=== PATIENT | female | born 1970 | race Caucasian/White ===

== ENCOUNTER 2025-10-17 16:08 | Emergency (ER) | payer OTHER, SELFPAY ==
[2025-10-17 16:14] VITALS: BP 94/63; PULSE 76; RESP 18; TEMP 36.8; O2SAT 95
--- NOTE | 2025-10-17 16:15 | RT.EKG_ITS ---
APPROVED REPORT Exam: Resting ECG Reason for Exam: SOB Patient Location: E HR:67 bpm ECG Measurements Heart Rate 67 AXIS MI 114 P 61 QRSd 101 QRS 78 QT 431 T 61 QTc 455 Conclusion Sinus rhythm, rate 67 No interval abnormalities No STEMI No priors available for comparison
--- NOTE | 2025-10-17 16:30 | DI.RAD_ITS ---
Exam(s) XR RIBS LT W PA LAT CHEST EXAM: XR RIBS LT W PA LAT CHEST CLINICAL HISTORY: fall onto stairs. TECHNIQUE: 2D digital imaging was performed. COMPARISON: No exams were available for comparison FINDINGS: Total 6 views: Left rib cage-four views: There is a subtle suggestion of a nondisplaced fracture of the left 10th rib. No rib lesions evident. Chest x-ray-two views: Heart size normal. The mediastinum is not widened. No lung contusion or infiltrates nor pleural effusions. No pneumothorax. IMPRESSION: Subtle nondisplaced fracture of the left 10th rib. No acute pulmonary findings. No evidence of pneumothorax. DATA REPOSITORY: RADIATION DOSE DELIVERED:
--- NOTE | 2025-10-17 16:54 | ED.GENADUL_ITS ---
Discharge Plan Disposition Patient Disposition: Home Condition: Stable Discharge Details Clinical Impression: Fracture of left tenth rib, Fall (on) (from) other stairs and steps, initial encounter Primary Care Provider: Unknown,Unknown ED Provider: Melanie Marshall Home Meds and New Rx's Prescriptions: No Action aspirin [Adult Low Dose Aspirin] 81 mg tablet,delayed release (DR/EC) 81 mg PO DAILY Patient Comments: has not taken for a few days Discharge Instructions Instructions: Rib Fracture or Bruised Rib ED Additional Instructions: You were seen in the emergency department today for evaluation after a fall and were found to have a nondisplaced fracture of the left 10th rib. There was no evidence of damage to your lungs underneath this, in our emergency department you also had a reassuring EKG and negative cardiac enzymes on your labs. You received medications to manage pain, and should purchase Lidoderm patches [id number] for continued management of pain from your rib fracture. Please use therapeutic dosing of Tylenol (acetaminophen) & Advil (ibuprofen) in an alternating fashion as follows: Take 1000mg of Tylenol every 6 hours without missing doses- that is 4 times per day. [place] in between the Tylenol doses, take 600mg of Advil also on a 6 hour schedule, that is also 4 times per day. With this strategy, you will be taking something for fever/pain as often as every 3 hours. The daily maximum dosing of Tylenol is 4000mg, and the daily maximum dosing of Advil is 2400mg. Please note that some common cold medications & prescription pain medications may contain acetaminophen and you need to read OTC drug labels and factor that in to maximum daily doses. I have provided you with a short course of Flexeril, you can take 1/2 to 1 tablet as needed for severe pain or muscle spasms. This medication can cause sedation, please do not take it if you are going to be driving or operating machinery. Most patients find that they use this medication at nighttime when their pain is worse to help him sleep. Please continue to use your incentive spirometer several times per day to keep your lungs open and healthy. Splint with a pillow or fluffy blanket when you need to cough or move, and return to the emergency department for reevaluation if you develop a cough productive of blood or sputum, fever or chills, shortness of breath, or any other symptoms that cause you concern. Please follow-up with your primary care provider in the next few days to discuss this visit and any symptoms that change, worsen, or persist. Thank you for allowing us to be part of your care. Stand Alone Forms: Portal Information HPI General Mode of arrival: ambulatory . Date/Time Provider Initiated Documentation: 10/17/25 16:10 . Limitations to Documentation: no limitations . Information obtained by: patient, family and old records reviewed . HPI Narrative: This is a 55-year-old female patient presenting for evaluation after a fall. The patient was on the stairs, which are wooden and she was wearing leather slippers and slipped, and fell landing on her left sided rib/back. She did not strike her head or lose consciousness, does not take any anticoagulant medications, and was in her normal state of health prior to this event without dizziness, syncope, or chest pain. She reports that she was able to get up and walk after this incident but was having significant pain in her sternum and left sided rib/back. She had an episode of vomiting immediately after this event, and presented to care most concerned that she could have had a cardiac injury. The patient has recently relocated from [place], continues to follow with primary care providers back in [place], takes a daily baby aspirin. Related Data Home Medications ?Medication ?Instructions ?Recorded ?Confirmed aspirin 81 mg tablet,delayed 81 mg PO DAILY 10/17/25 1 12/18/24 release (Adult Low Dose Aspirin) General Stated Complaint: Orthopedic SVETA: 3 Exam Narrative Exam Narrative: Gen: Awake and alert, in no apparent distress HEENT: Non-icteric sclera, scalp atraumatic Neck: Supple, no C-spine tenderness or limitation in range of motion Lungs: No apparent respiratory distress, normal respiratory effort. Lung sounds clear and equal bilaterally without wheezes, rhonchi, rales CV: Appears well perfused, heart with regular rate and rhythm, strong distal pulses Abdomen: Non-distended, soft, nontender to palpation without rigidity, rebound, or guarding. MSK: Moves 4 extremities without apparent limitation in ROM. No peripheral edema. The patient does have tenderness to palpation without overlying skin changes, crepitus, or deformity of the posterolateral left sided lower ribs. She has some tenderness over the anterior chest wall with movement and palpation, with no overlying skin changes or crepitus. Abdomen is soft and nontender, no tenderness to palpation of the T or L-spine. Skin: Visualized skin without rashes, cyanosis. Neuro: Normal Gait, no obvious focal deficits or facial asymmetry. Speaks in full, clear sentences. Psych: Appropriate for situation. Course Vital Signs Vital signs: Vital Signs Temperature 36.8 C 10/17/25 16:14 Pulse 76 10/17/25 16:14 Respiratory Rate 18 10/17/25 16:14 Blood Pressure 94/63 L 10/17/25 16:14 Pulse Oximetry 95 10/17/25 16:14 Temperature 36.8 C 10/17/25 16:14 Pulse 76 10/17/25 16:14 Respiratory Rate 18 10/17/25 16:14 Blood Pressure 94/63 L 10/17/25 16:14 Blood Pressure Position Sitting 10/17/25 16:14 Pulse Oximetry 95 10/17/25 16:14 Pain Level 9 10/17/25 16:14 Medical Decision Making This is a 55-year-old female patient presenting for evaluation after a fall. My differential includes but is not limited to rib fracture, contusion, certainly considered pulmonary contusion, pneumothorax, sternal injury. Considered blunt cardiac injury, this was a mechanical fall and my concern for medical etiology such as ACS, arrhythmia, syncope, seizure, and stroke is quite low. The patient does have a slightly low blood pressure which she reports is normal for her, has been hydrating appropriately at home without concern for dehydration, metabolic or electrolyte derangement or kidney injury. I did shared decision-making conversation with the patient regarding workup options, she is desiring of avoiding CT scan and so we will obtain a chest x-ray with left-sided rib films. I do not see an indication at this time to proceed with CT head given her lack of head strike, anticoagulation, or neurodeficits. I will provide the patient with multimodal pain control to include Tylenol, Toradol, and Lidoderm patch. I obtained an EKG which shows a sinus rhythm without evidence of ischemia, interval abnormality, or ectopy. We will obtain labs to include CBC, CMP, magnesium, and troponin. -I independently interpreted the laboratory studies, which show no significant leukocytosis, anemia, or thrombocytopenia. The chemistry panel is without evidence of electrolyte abnormality, kidney dysfunction, or liver injury other than a very slight elevation in her AST to 40. No priors available for comparison. Troponin was negative and without interval increase on 1 hour delta recheck. X-ray image reviewed by myself, radiology notes a subtle nondisplaced left 10th rib fracture without underlying lung pathology. On reevaluation the patient's symptoms have improved significantly, she was able to pull 2500 cc on incentive spirometry and was counseled on multimodal pain management and pulmonary hygiene. She is desiring of avoiding narcotics but was sent with a short course of Flexeril for muscle spasm management, and will follow-up with her PCP for reevaluation. At this time, the patient has had a full medical evaluation and is safe for discharge to home. They are hemodynamically stable, ambulatory, and tolerating PO. They are understanding of the follow-up plan and return precautions. They left our facility without incident. Melanie Marshall MD [facility] All Active Problems (Updated 10/17/25 @ 18:43 by Melanie Marshall MD) Fall (on) (from) other stairs and steps, initial encounter (Acute) Fracture of left tenth rib (Acute) Social History Smoking risk assessment performed?: No
[2025-10-17 17:00] LABS: Abs Immature Grans 0.05 10^3/uL (0.0-0.06); HCT 43.0 % (36.0-46.0); HGB 14.2 g/dL (11.2-15.7); Immature Grans % 0.6 %; MCH 31.3 pg (27.0-33.0); MCHC 33.0 % (32.0-36.0); MCV 95 fL (80-95); MPV 10.4 fL (8.0-11.0); Platelet Count 217 10^3/uL (130-400); RBC 4.54 10^6/uL (3.93-5.22); RDW 12.6 % (11.7-14.6); RDW-SD 43.6 fL; WBC 9.05 10^3/uL (4.4-10.8)
[2025-10-17] MEDS: Acetaminophen 500 MG TAB 1000 MG PO (17:00)
[2025-10-17] MEDS: Ketorolac 15 MG/ML VIAL IVP (17:01)
[2025-10-17] MEDS: Normal Saline Flush 10 ML SYR IVP (17:02)
[2025-10-17 17:13] LABS: Magnesium 2.0 mg/dL (1.6-2.6)
[2025-10-17 17:15] LABS: ALT 39 U/L (10-49); AST 40 U/L (<34); Albumin 4.6 g/dL (3.2-5.0); Alkaline Phosphatase 51 U/L (46-116); Anion Gap 10.9 mmol/L (3-11); BUN 9 mg/dL (9-23); Bilirubin, Total 1.10 mg/dL (0.2-1.2); CO2 26.1 mmol/L (20.0-31.0); Calcium 9.0 mg/dL (8.3-10.6); Chloride 105 mmol/L (98-107); Glucose 94 mg/dL (74-106); Potassium 3.8 mmol/L (3.5-5.1); Sodium 142 mmol/L (136-145); Total Protein 7.7 g/dL (5.7-8.2); Troponin I 27 ng/L (<35)
[2025-10-17] MEDS: Lidocaine 5% Patch 1 PATCH TP (17:26)
[2025-10-17 18:27] LABS: Troponin I 27 ng/L (<35)
[2025-10-17] MEDS: Cyclobenzaprine 10 MG TAB, 3 TABS/BTL PO (18:44)
[2025-10-17 18:45] VITALS: BP 94/61; PULSE 78; O2SAT 97
== END 2025-10-17 19:00 | disposition home or self-care (01) ==
PROVIDERS: Emergency Provider Emergency Medicine
DX: S22.32XA Fracture of one rib, left side, initial encounter for closed fracture (principal); W10.9XXA Fall (on) (from) unspecified stairs and steps, initial encounter
CPT/HCPCS: 99284; 99285; 36415; 96374; 80053; 93005; 71046; 71100; 83735; 84484; 85025; 93010; J1885